=== PATIENT | female | born 1985 | race Caucasian/White ===

== ENCOUNTER 2018-12-16 17:38 | Emergency (ER) | payer OTHER ==
[2018-12-16] MEDS: ACETAMINOPHEN 500 MG TAB PO (18:22)
[2018-12-16 18:27] LABS: URINE PH (Dip) POC 5.5 (5.0-8.5)
[2018-12-16 18:27] LABS: URINE BLOOD (Dip) POC 2+ (NEGATIVE); URINE GLUCOSE (Dip) POC Negative (NEGATIVE); URINE KETONES (Dip) POC Negative (NEGATIVE); URINE LEUKOCYTE EST (Dip) POC 2+ (NEGATIVE); URINE NITRITE (Dip) POC Positive (NEGATIVE); URINE TOTAL PROTEIN POC 1+ (NEGATIVE)
[2018-12-16] MEDS: CEFTRIAXONE 1 GM INJ IM (19:15)
[2018-12-16] MEDS: LIDOCAINE 1% (MPF) 5 ML VIAL INJ (19:15)
== END 2018-12-16 19:30 | disposition home or self-care (01) ==
LOC: FTE 17:38
DX: N12 Tubulo-interstitial nephritis, not specified as acute or chronic (principal); Z91.040 Latex allergy status
CPT/HCPCS: 81003; 81025; 87086; 96372; 99284-25